=== PATIENT | female | born 1980 | race Caucasian/White ===

== ENCOUNTER 2020-07-26 05:13 | Emergency (ER) | payer OTHER ==
[~2020-07-26] VITALS: Ht 165.1 cm; Wt 68.9 kg
[2020-07-26 05:47] LABS: HEMOGLOBIN 9.3 gm/dl (12.3-15.3); RED BLOOD COUNT 4.28 M/UL (4.00-5.10); WHITE BLOOD COUNT 8.4 K/UL (4.5-11.0)
[2020-07-26 06:20] LABS: BUN/CREATININE RATIO 17 (0-10)
[2020-07-26] MEDS ORDERED: KLONOPIN TAB 00.5 MG PO (09:14)
[2020-07-26] MEDS ORDERED: CETIRIZINE HCL10 MG PO (09:14)
[2020-07-26] MEDS ORDERED: LEVOTHYROXINE125 MCG PO (09:15)
[2020-07-26] MEDS ORDERED: THERAGRAN M TAB1 EA PO (09:16)
[2020-07-26] MEDS ORDERED: VITAMIN D3100 MCG PO (09:34)
[2020-07-26] MEDS ORDERED: LACTINEX TABLET1 EA PO (09:35)
[2020-07-26] MEDS ORDERED: VITAMIN D 40400 UNIT PO (11:19)
[2020-07-26] MEDS ORDERED: FERROUS SU300 MG/5 M PO (18:12)
== END 2020-07-26 19:07 | disposition home or self-care (01) ==
LOC: ER1 05:13 → CDU 08:11 → ER1 08:11
PROVIDERS: Emergency Medicine
DX: R00.2 Palpitations (principal); R07.89 Other chest pain; E87.6 Hypokalemia; Z20.822 Contact with and (suspected) exposure to COVID-19; D64.9 Anemia, unspecified; Z88.1 Allergy status to other antibiotic agents; Z85.850 Personal history of malignant neoplasm of thyroid
CPT/HCPCS: ECHO; 0240U; 71045; 80053; 80307; 81001; 82550; 82553; 82728; 83540; 83550; 84439; 84443; 84484; 85025; 85379; 85610; 85730; 93005; 93306; 96374; 96375; 99285; J7030

== ENCOUNTER → 2020-08-21 | Outpatient (CLI) | payer OTHER ==
[~2020-08-21] MED LIST: CETIRIZINE HCL10 MG PO; FERROUS SU300 MG/5 M PO; KLONOPIN TAB 00.5 MG PO; LACTINEX TABLET1 EA PO; LEVOTHYROXINE125 MCG PO; THERAGRAN M TAB1 EA PO; VITAMIN D 40400 UNIT PO; VITAMIN D3100 MCG PO
[2020-08-21 12:12] LABS: HEMOGLOBIN 11.2 gm/dl (12.3-15.3); RED BLOOD COUNT 5.11 M/UL (4.00-5.10)
== END ==
LOC: MAMO 11:00
PROVIDERS: Nurse Practitioner
DX: Z12.31 Encounter for screening mammogram for malignant neoplasm of breast (principal); D64.9 Anemia, unspecified
CPT/HCPCS: 36415; 77063; 77067; 83540; 83550; 85027